=== PATIENT | male | born 1995 | race Two or more races ===

== ENCOUNTER 2020-03-30 11:04 | Emergency (ER) | payer OTHER ==
[~2020-03-30] VITALS: Ht 175.3 cm; Wt 83.5 kg
[2020-03-30 11:05] VITALS: BP 143/93
[2020-03-30] MEDS ORDERED: ACETAMINOPHEN/CODEINE#3 (300/30mg) TAB PO ONE (12:15)
== END 2020-03-30 12:57 | disposition home or self-care (01) ==
LOC: ER 11:04
DX: S82.831A Other fracture of upper and lower end of right fibula, initial encounter for closed fracture (principal); W31.9XXA Contact with unspecified machinery, initial encounter; Y93.89 Activity, other specified; Y92.89 Other specified places as the place of occurrence of the external cause; Y99.0 Civilian activity done for income or pay
CPT/HCPCS: 29515; 73610